=== PATIENT | male | born 1950 | race Caucasian/White ===

== ENCOUNTER 2019-07-28 13:25 | Emergency (ER) | payer BC, SELFPAY ==
[2019-07-28 13:50] VITALS: BP 146/80; PULSE 60; RESP 20; TEMP 36.4; O2SAT 94
--- NOTE | 2019-07-28 14:01 | ED.URI ---
HPI - URI/Sore Throat General Chief Complaint: Upper Respiratory Infection Stated Complaint: Sore throat Time Seen by Provider: 07/28/19 13:50 Source: patient Mode of arrival: ambulatory Limitations: no limitations History of Present Illness HPI Narrative: Gustavo Hebert is a 68 yo male with HTN, high cholesterol, hypothyroid, seizure disorder, who comes to express care for worsening sore throat and hoarseness over the last 5 days. Has used Mucinex with no result Related Data Home Medications Medication Instructions Recorded Confirmed carbamazepine 400 mg PO BID 07/28/19 07/28/19 levothyroxine 200 mcg PO DAILY 07/28/19 07/28/19 nebivolol [Bystolic] 10 mg PO DAILY 07/28/19 07/28/19 simvastatin 40 mg PO HS 07/28/19 07/28/19 Allergies Allergy/AdvReac Type Severity Reaction Status Date / Time No Known Allergies Allergy Unverified 08/14/14 13:38 Review of Systems Review of Systems: Narrative: CONSTITUTIONAL: Denies fever, chills, sweats. EYES: Denies visual changes, redness, discharge. ENT: Denies rhinorrhea, has congestion, has sore throat, no otalgia. CARDIOVASCULAR: Denies chest pain, palpitations, edema. RESPIRATORY: Denies dyspnea, wheezing, mild cough GASTROINTESTINAL: Denies abdominal pain, nausea, vomiting, diarrhea. GENITOURINARY: Denies dysuria, hematuria, abnormal discharge SKIN: Denies rash or itching. NEUROLOGIC: Denies numbness, or focal weakness. PSYCHIATRIC: Denies anxiety or depression. [facility] Family History Family History (Updated 07/28/19 @ 14:04 by Yajaira Lauern CNP) Other No active medical problems Social History Social History Smoking status: Current some day smoker Alcohol intake: current Comments At time of signature, I agree with nursing past medical, surgical, social and family history. There is no relevant family history pertinent to the presenting complaint. Exam Narrative: Exam Narrative: GENERAL: This is a well-nourished, well-developed patient, in mild distress. HEAD: normocephalic, atraumatic. EYES: Sclera clear/white. Vision is grossly intact. EARS: External ears normal, auditory canals clear and without drainage, TMs normal without perforation. Hearing grossly intact. NOSE: External nose normal with no obvious nasal discharge, nares without redness, no rhinorrhea. THROAT: Mucous membranes moist, posterior pharynx erythema with deepening of voice and some laryngitis NECK: Neck supple, non-tender CARDIOVASCULAR: Regular rate and rhythm without murmurs, gallops, or rubs. RESPIRATORY: Diminished to auscultation. Breath sounds equal bilaterally. No wheezes, rales, or rhonchi. GASTROINTESTINAL: Abdomen soft, non-tender, SKIN: warm, intact with no suspicious lesions or rash, good texture and turgor. NEURO: awake, alert, and oriented to person, place and time. There were no obvious focal neurologic abnormalities. Steady gait EXTREMITIES: Normal range of motion. No edema. BACK: Nontender without deformity or crepitance. Course Course Emergency Course: Strep swab Started on prednisone, zithromax, codeine cough syrup Vital Signs Vital signs: Vital Signs Temperature 97.5 F L 07/28/19 13:50 Pulse Rate 60 07/28/19 13:50 Respiratory Rate 20 07/28/19 13:50 Blood Pressure 146/80 H 07/28/19 13:50 Pulse Oximetry 94 07/28/19 13:50 Temperature 97.5 F L 07/28/19 13:50 Pulse Rate 60 07/28/19 13:50 Respiratory Rate 20 07/28/19 13:50 Blood Pressure 146/80 H 07/28/19 13:50 Pulse Oximetry 94 07/28/19 13:50 MDM - URI/Sore Throat Differential Diagnosis Differential diagnosis: Likely upper respiratory infection, sinusitis, viral infection, pharyngitis and other Lab Data Labs: Strep Screen Presumptive Negative *(Reference Range: Negative)* Discharge Plan Discharge Clinical Impression: Pharyngitis Qualifiers: Pharyngitis/tonsillitis etiology: unspe
== END 2019-07-28 14:28 | disposition home or self-care (01) ==
PROVIDERS: Emergency Provider Nurse Practitioner; PCP Internal Medicine
DX: J02.9 Acute pharyngitis, unspecified (principal); F17.200 Nicotine dependence, unspecified, uncomplicated; I10 Essential (primary) hypertension; E78.00 Pure hypercholesterolemia, unspecified
CPT/HCPCS: 87081; 87880; 99203; G0463

== ENCOUNTER 2019-12-21 14:25 | Outpatient (CLI) | payer BC, SELFPAY ==
--- NOTE | ~2019-12-21 | XR_ITS ---
EXAMINATION: XR knee LT 3V DATE: 12/21/2019 14:46 INDICATION: Left knee pain. TECHNIQUE: 3 views of left knee were obtained. COMPARISON: None. FINDINGS: There is varus angulation at the knee. No fracture. There is severe osteoarthritis of media l compartment, moderate osteoarthritis of patellofemoral compartment, and mild osteoarthritis of late ral compartment. No knee joint effusion. IMPRESSION: 1. Severe left knee osteoarthritis. Reviewed, dictated and finalized at location A.
== END 2019-12-21 14:26 | disposition home or self-care (01) ==
LOC: ANHIMG 14:30
PROVIDERS: PCP Internal Medicine; Visit Provider Internal Medicine
DX: M17.12 Unilateral primary osteoarthritis, left knee (principal)
CPT/HCPCS: 73562

== ENCOUNTER 2020-01-03 08:26 | Outpatient (CLI) | payer BC, SELFPAY ==
[2020-01-03 09:04] LABS: Basophils Percent Auto 0.4 % (0.2-1.2); Eosinophils Absolute Auto 0.2 K/mm3 (0-0.3); Eosinophils Percent Auto 4.4 % (0-4.4); Hematocrit 43.6 % (42.0-52.0); Hemoglobin 15.1 g/dL (14.0-18.0); Immature Granulocyte Absolute 0.01 K/mm3 (0.00-0.031); Immature Granulocyte Percent A 0.2 % (0-0.5); Lymphocytes Absolute Auto 1.27 K/mm3 (0.9-3.2); Lymphocytes Percent Auto 25.6 % (18.3-44.2); Mean Corpuscular HGB Conc 34.6 g/dl (32-36); Mean Corpuscular Hemoglobin 33.1 pg (26-34); Mean Corpuscular Volume 95.6 fl (80-100); Mean Platelet Volume 8.8 fl (7.4-10.4); Monocytes Absolute Auto 0.6 K/mm3 (0.1-0.6); Monocytes Percent Auto 11.3 % (2.6-8.5); Neutrophils Absolute Auto 2.9 K/mm3 (1.3-6.7); Neutrophils Percent Auto 58.1 % (45.5-73.1); Platelet Count Result 161 k/mm3 (150-375); Red Blood Count 4.56 M/mm3 (4.6-6.20); Red Cell Distribution Width 12.4 % (11.5-14.5)
[2020-01-03 09:06] LABS: Add Urine Microscopic? NO; Appearance Urine Clear (Clear); Bilirubin Urine Negative (Negative); Blood Urine Negative (Negative); Color Urine Yellow (Yellow); Glucose Urine UA Negative (Negative); Ketones Urine Negative (Negative); Leukocyte Esterase Ur Negative LEU/UL (NEGATIVE); Nitrate Urine Negative (Negative); Protein Urine Negative (Negative); Specific Grav Ur 1.023 (1.001-1.035); Urobilinogen Urine Negative mg/dL (<2.0)
[2020-01-03 09:15] LABS: Hemoglobin A1C 5.6 % (<5.7)
[2020-01-03 09:20] LABS: Alanine Aminotransferase 35 U/L (4-50); Albumin Level 4.3 g/dL (3.5-5.1); Alkaline Phosphatase 74 U/L (38-126); Anion Gap 9 mmol/L (8-16); Aspartate Amino Transferase 35 U/L (17-59); Bilirubin,Total 0.5 mg/dL (0.2-1.3); Blood Urea Nitrogen 17 mg/dL (9-20); Carbon Dioxide 21 mmol/L (22-30); Chloride 106 mmol/L (98-107); Cholesterol 213 mg/dL (0-200); Estimated Glomerular Filt Rate > 60; Glucose 128 mg/dL (75-110); HDL Direct 48 mg/dL; Potassium 4.1 mmol/L (3.4-5.0); Sodium 136 mmol/L (137-145); Triglycerides 276 mg/dL (<150)
[2020-01-03 09:30] LABS: LDL Cholesterol Direct 94 mg/dL
[2020-01-03 09:48] LABS: Free T4 Free Thyroxine 0.76 ng/mL (0.78-2.19)
[2020-01-03 09:49] LABS: Thyroid Stimulating Hormone 0.281 uIU/mL (0.465-4.680)
[2020-01-06 04:55] LABS: Insulin Level Total 44.6 uIU/mL (<=19.6)
[2020-01-06 17:25] LABS: Vitamin D 1,25 (OH)2 Total 29 pg/mL (18-72); Vitamin D2 1,25 (OH)2 <8 pg/mL; Vitamin D3 1,25 (OH)2 29 pg/mL
[2020-01-07 06:30] LABS: C-Peptide 3.83 ng/mL (0.80-3.85)
[2020-01-11 07:00] LABS: Carbamazepine Tegretol 4.6 mcg/mL (4.0-12.0)
== END 2020-01-03 08:27 | disposition home or self-care (01) ==
PROVIDERS: PCP Internal Medicine; Visit Provider Internal Medicine
DX: E55.9 Vitamin D deficiency, unspecified (principal); E16.1 Other hypoglycemia; G40.909 Epilepsy, unspecified, not intractable, without status epilepticus; I10 Essential (primary) hypertension; E03.9 Hypothyroidism, unspecified; R79.9 Abnormal finding of blood chemistry, unspecified; Z79.899 Other long term (current) drug therapy; E78.00 Pure hypercholesterolemia, unspecified
CPT/HCPCS: 36415; 80053; 80061; 80156; 81003; 82652; 83036; 83090; 83525; 84439; 84443; 84681; 85025

== ENCOUNTER 2020-02-16 10:27 | Outpatient (CLI) | payer BC, SELFPAY ==
--- NOTE | 2020-02-16 | ECG_ITS ---
Measurements Intervals [place] Rate: 55 P: 21 NH: 209 QRS: -43 QRSD: 122 T: 43 QT: 428 QTc: 412 Interpretive Statements SINUS BRADYCARDIA WITH FIRST DEGREE AV BLOCK LEFT AXIS DEVIATION RSR' IN V1 OR V2, CONSIDER RIGHT VENTRICULAR HYPERTROPHY OR RIGHT VCD ABNORMAL ECG Electronically Signed On 02-16-2020 20:07:40 CDT by Karan Lyons D.O.
[2020-02-16 11:57] LABS: Hematocrit 45.6 % (42.0-52.0); Hemoglobin 15.7 g/dL (14.0-18.0)
[2020-02-16 12:06] LABS: Hemoglobin A1C 5.6 % (<5.7)
[2020-02-16 12:07] LABS: Albumin Level 4.7 g/dL (3.5-5.1); Estimated Glomerular Filt Rate > 60; Glucose 102 mg/dL (75-110)
[2020-02-16 12:17] LABS: Urine Cotinine NEGATIVE
== END 2020-02-16 10:28 | disposition home or self-care (01) ==
PROVIDERS: PCP Internal Medicine; Visit Provider Orthopaedic Surgery
DX: Z01.818 Encounter for other preprocedural examination (principal); M17.12 Unilateral primary osteoarthritis, left knee; R94.31 Abnormal electrocardiogram [ECG] [EKG]
CPT/HCPCS: 80307; 82040; 82565; 82947; 83036; 85014; 85018; 93005

== ENCOUNTER 2020-03-01 13:47 | Outpatient (CLI) | payer BC, SELFPAY ==
[2020-03-01 15:25] LABS: Basophils Percent Auto 0.4 % (0.2-1.2); Eosinophils Absolute Auto 0.2 K/mm3 (0-0.3); Eosinophils Percent Auto 2.9 % (0-4.4); Hematocrit 45.1 % (42.0-52.0); Hemoglobin 15.2 g/dL (14.0-18.0); Immature Granulocyte Absolute 0.03 K/mm3 (0.00-0.031); Immature Granulocyte Percent A 0.4 % (0-0.5); Lymphocytes Absolute Auto 1.85 K/mm3 (0.9-3.2); Lymphocytes Percent Auto 25.7 % (18.3-44.2); Mean Corpuscular HGB Conc 33.7 g/dl (32-36); Mean Corpuscular Hemoglobin 32.8 pg (26-34); Mean Corpuscular Volume 97.4 fl (80-100); Mean Platelet Volume 8.8 fl (7.4-10.4); Monocytes Absolute Auto 0.6 K/mm3 (0.1-0.6); Monocytes Percent Auto 8.3 % (2.6-8.5); Neutrophils Absolute Auto 4.5 K/mm3 (1.3-6.7); Neutrophils Percent Auto 62.3 % (45.5-73.1); Platelet Count Result 167 k/mm3 (150-375); Red Blood Count 4.63 M/mm3 (4.6-6.20); Red Cell Distribution Width 12.5 % (11.5-14.5); White Blood Count 7.2 K/mm3 (4.5-10.0)
[2020-03-01 15:36] LABS: Anion Gap 11 mmol/L (8-16); Blood Urea Nitrogen 22 mg/dL (9-20); Calcium 9.8 mg/dL (8.4-10.2); Carbon Dioxide 26 mmol/L (22-30); Chloride 105 mmol/L (98-107); Estimated Glomerular Filt Rate > 60; Glucose 96 mg/dL (75-110); Potassium 4.1 mmol/L (3.4-5.0); Sodium 142 mmol/L (137-145)
[2020-03-06 09:49] LABS: Carbamazepine Tegretol 6.1 mcg/mL (4.0-12.0)
== END 2020-03-01 13:48 | disposition home or self-care (01) ==
PROVIDERS: Anesthesiology; PCP Internal Medicine; Visit Provider Orthopaedic Surgery
DX: M17.12 Unilateral primary osteoarthritis, left knee (principal); E11.9 Type 2 diabetes mellitus without complications; G43.909 Migraine, unspecified, not intractable, without status migrainosus
CPT/HCPCS: 36415; 80048; 80156; 85025; 86850; 86900; 86901; 87081

== ENCOUNTER 2020-03-11 00:55 | Outpatient (CLI) | payer BC, SELFPAY ==
[2020-03-11 17:41] LABS: SARS-CoV-2 RNA PCR Negative
== END 2020-03-11 00:56 | disposition home or self-care (01) ==
LOC: ANHCOVIDDT 00:55
PROVIDERS: PCP Internal Medicine; Visit Provider Orthopaedic Surgery
DX: Z01.812 Encounter for preprocedural laboratory examination (principal); Z20.828 Contact with and (suspected) exposure to other viral communicable diseases
CPT/HCPCS: 87635; C9803; U0003

== ENCOUNTER 2020-03-12 19:28 | Inpatient (IN) | payer BC, MEDICARE, SELFPAY ==
[2020-03-01 14:10] VITALS: BP 155/88; PULSE 60; RESP 16; TEMP 36.6; O2SAT 95; BMI 34.7
[2020-03-12] VITALS (12 sets, daily range): BP systolic 118–175; BP diastolic 65–92; PULSE 58–68; RESP 10–17; TEMP 36.5–36.8; O2SAT 94–100
--- NOTE | ~2020-03-12 | XR_ITS ---
EXAMINATION: XR knee LT 2V EXAM DATE: 03/12/2020 15:51 INDICATION: Postoperative left knee replacement. TECHNIQUE: Frontal and lateral projections of the left knee. Comparison is made to prior examination from 12/21/2019. FINDINGS: There is total left knee arthroplasty hardware in expected position. There is gas in the k nee joint, some subcutaneous gas. No unintended foreign bodies. IMPRESSION: Status post total left knee arthroplasty. Reviewed, dictated and finalized at location A.
--- NOTE | 2020-03-12 07:16 | WPDHPUPDATE1 ---
History and Physical Update Update Date/Time: 03/12/20 07:16 History and Physical has been reviewed, including an updated exam of the patient. There are NO changes in the patient's condition. Risks, benefits, and alternatives have been discussed and questions answered. Patient agrees to proceed with procedure.
--- NOTE | 2020-03-12 10:07 | WPDANESEPPF ---
Anes - Initial Pre Proc Eval Procedure: Operation Date: 03/12/20 13:30 Proposed Procedures p Left Total Knee Arthroplasty - Reji Nowak MD Date/Time: 03/12/20 10:07 Surgeon: Reji Nowak MD Pre Op Diagnosis: Degerative Joint Disease Left Knee Patient Data Age: 69 Gender: M Height: 1.75 m Weight: 106.6 kg Last Vital Signs Temp 36.6 C 03/01/20 14:10 Pulse 60 03/01/20 14:10 Resp 16 03/01/20 14:10 BP 155/88 H 03/01/20 14:10 Pulse Ox 95 03/01/20 14:10 Allergies Allergy/AdvReac Type Severity Reaction Status Date / Time No Known Allergies Allergy Verified 03/06/20 08:33 Home Medications Medication Instructions Recorded Confirmed Type carbamazepine 400 mg PO QAM 07/28/19 03/12/20 History levothyroxine 200 mcg PO HS 07/28/19 03/12/20 History qfoeelok-hca-ishqa acid 300 1 tablet PO DAILY 12/21/19 03/12/20 History mcg-lycopene 600 mcg-lutein 300 mcg tablet omeprazole 40 mg capsule,delayed 40 mg PO QAM 12/21/19 03/12/20 History release omega-3 fatty acids 1,000 mg 2,000 mg PO BID cap 01/04/20 03/12/20 History capsule metformin 500 mg tablet 500 mg PO BID #180 tablet 01/11/20 03/12/20 Rx vitamin B complex 3 tablet PO BID 02/06/20 03/12/20 History acetaminophen [Tylenol Arthritis 1,300 mg PO Q8H PRN 03/01/20 03/12/20 History Pain] aspirin 325 mg PO DAILY 03/01/20 03/12/20 History nebivolol 5 mg PO QAM 03/01/20 03/12/20 History olmesartan 40 mg PO QAM 03/01/20 03/12/20 History rosuvastatin [Crestor] 20 mg PO HS 03/01/20 03/12/20 History ECG: Date of Service: 02/16/20 Procedure(s): CA 12 lead EKG Accession Number(s): [id number] cc: ~ Measurements Intervals [place] Rate: 55 P: 21 [place]: 209 QRS: -43 QRSD: 122 T: 43 QT: 428 QTc: 412 Interpretive Statements SINUS BRADYCARDIA WITH FIRST DEGREE AV BLOCK LEFT AXIS DEVIATION RSR' IN V1 OR V2, CONSIDER RIGHT VENTRICULAR HYPERTROPHY OR RIGHT VCD ABNORMAL ECG Electronically Signed On 02-16-2020 20:07:40 CDT by Karan Lyons D.O. 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 LAST ONE 02/27/20 Alcohol intake: current Drinks per week: 7 Alcohol use details: WINE Substance use: never Living arrangements: alone Spiritual care concerns: No Anes - Eval Final PreProcedure D
[2020-03-12] MEDS: ACETAMINOPHEN 500 MG TABLET 1000 MG PO (12:08)
[2020-03-12 12:10] LABS: Glucose Point of Care 99 (65-105)
[2020-03-12] MEDS: TRANEXAMIC ACID 1,000MG/ISO100 1,000 MG/100 ML BAG 200 MG IVPB (12:14)
--- NOTE | 2020-03-12 12:30 | WPDANESPNB ---
Anes - Peripheral Nerve Block Date/Time: 03/12/20 12:30 I have discussed with the patient/family/POA the placement of a peripheral nerve block for post-operative pain management, including associated risks, benefits, complications, and side effects. Alternative methods of post-operative analgesia were detailed. Questions were solicited and answers provided to the satisfaction of the patient/family/POA. Time-Out: A pre-procedural Time-Out was completed immediately before starting the procedure and confirmed: Patient Identification, Site, Procedure, Patient Position and the Availability of Requisite Equipment. Clinical Indications: Acute post-operative pain management requested by the operative surgeon. Nerve Block Insertion Note Anes-nerve block: adductor canal left Patient position: supine Skin prep: chlorhexidine Needle: 22 gauge, stimulating, insulated echogenic needle. Needle length: 80 mm Technique: ultrasound Technique comment: in plane Injectate: bupivacaine 0.5% with epi 5 mcg/ml (30cc) Observations: tolerated well Complications: none Procedure start time:: 1250 Procedure end time:: 1300
[2020-03-12] MEDS: LACTATED RINGERS 1,000 ML 30 ML IV CONT ×2 (12:35→15:36)
[2020-03-12] MEDS: KETOROLAC 15 MG/ML VIAL (*BKC) IV PUSH (12:40)
[2020-03-12] MEDS: ceFAZolin 2 GM/D5W 50 ML 2 GM/50 ML BAG IVPB (13:46)
[2020-03-12] MEDS: GENTAMICIN BONE CEMENT REFOBACIN 1 EACH TOPICAL (14:00)
--- NOTE | 2020-03-12 15:32 | PM.PROC ---
Procedure Note - Detailed Date of procedure: 03/12/20 Pre-op diagnosis: Degerative Joint Disease Left Knee Post-op diagnosis: same Procedure performed: Total knee arthroplasty, left Description of procedure: Routine bone resections. Excellent bone quality. Diffuse tricompartmental degenerative changes noted. PCL intact. Implants: [place] [employer] size 5 press-fit femur, size 5 cemented low-profile tibia, 9 mm CR polyethylene insert, 35 mm asymmetric metal backed patellar component. Anesthesia: GETA and regional (subsartorial nerve block) Surgeon: Reji Nowak MD Roll Over Press Operator: Kym Ortiz PA-C Estimated blood loss (mL): 200 Tourniquet time (min): 12 Drains: No Complications: None Condition: stable Disposition: PACU Findings: OPERATIVE DETAILS: The patient was given a nerve block preoperatively, and then brought to the operating room. A general anesthetic was administered. The leg was prepped and draped in the usual sterile fashion. The limb was elevated and the tourniquet inflated to 300 mmHg during initial exposure. A longitudinal incision was created along the medial border of the patella and patellar tendon, and a minimally invasive optimized mid-vastus approach to the knee was performed. A moderate medial release was taken. The knee was then flexed. The osteophytes were carefully removed. The intramedullary guide was placed in the femoral canal. The distal femoral resection was then taken with the oscillating saw. The collateral ligaments were carefully protected. The tibia was carefully exposed. The jig was applied, and the proximal tibia was resected according to preoperative plan. The knee was balanced in extension. Appropriate releases were taken where needed. The anterior cruciate ligament and meniscal remnants were removed. The posterior cruciate ligament was preserved. The patella was measured. Patellar resection was carried out with the oscillating saw. The lug holes drilled. The femur was sized and rotation assessed using a combination of gap balancing, posterior referencing, and the AP axis. The 4 in 1 cutting block was used to finish the femoral cuts after equal gaps were assured. The lug holes were drilled. The osteophytes were carefully removed from the back of the knee. The knee was copiously irrigated with antibiotic solution periodically throughout the procedure. The meniscal remnants were removed. The spacer block was used to confirm equal flexion and extension gaps. Further releases were performed as needed. The tibia was sized and broached. The bony surfaces were prepared for cementing with pulsatile lavage. The real tibial component was cemented into position followed by press fitting the femoral component. Excess cement was carefully removed. The patella component was press-fit. Patellar tracking was carefully assessed. No additional releases were required. The wound was closed with #1 Vycril suture, #2 Quill suture, 0-Quill suture, and 2-0 Quill suture followed by Steri-Strips. A sterile bulky dressing was applied. Meticulous hemostasis was maintained throughout the procedure. There were no complications. The patient was extubated and brought to the recovery room in stable condition after the application of sterile dressing with Darrick bandage.
[2020-03-12 15:51] LABS: Glucose Point of Care 90 (65-105)
[2020-03-12] MEDS: SODIUM CHLORIDE 0.9% IV 1,000 ML 125 ML IV CONT (17:32)
[2020-03-12] MEDS: metFORMIN HCL 500 MG TABLET PO (17:33)
[2020-03-12] MEDS: VITAMIN B COMPLEX CAPSULE 3 CAP PO (17:34)
[2020-03-12] MEDS: ASPIRIN 81 MG ENTERIC TABLET PO (17:35)
[2020-03-12] MEDS: DOCUSATE SODIUM 100 MG CAPSULE PO (17:35)
[2020-03-12] MEDS: MELOXICAM 7.5 MG TABLET PO (17:35)
--- NOTE | 2020-03-12 18:00 | WPDCN ---
Assessment and Plan Assessment and plan (1) Degenerative joint disease of left knee: Code(s): M17.12 - Unilateral primary osteoarthritis, left knee Status: Acute (2) Hypertension: Code(s): I10 - Essential (primary) hypertension Status: Inactive (3) Dyslipidemia: Code(s): E78.5 - Hyperlipidemia, unspecified Status: Acute (4) Insulin resistance: Code(s): E88.81 - Metabolic syndrome Status: Acute (5) Hypothyroidism: Code(s): E03.9 - Hypothyroidism, unspecified Status: Inactive (6) Seizure disorder: Code(s): G40.909 - Epilepsy, unspecified, not intractable, without status epilepticus Status: Acute (7) Obstructive sleep apnea: Code(s): G47.33 - Obstructive sleep apnea (adult) (pediatric) Status: Inactive (8) Gastroesophageal reflux disease: Code(s): K21.9 - Gastro-esophageal reflux disease without esophagitis Status: Inactive Additional Plan The hospitalist service has been consulted for management of the patient's medical condition postoperatively. Wound care, pain control, and DVT prophylaxis will be deferred to Dr. Nowak. Agree with early ambulation and physical therapy. Blood pressures have been running high postoperatively, likely due to missed doses this morning. Antihypertensives will be resumed and his blood pressures will be monitored closely. Check baseline labs in a.m. He is on metformin for insulin resistance the and it is noted that his most recent hemoglobin A1c was 5.6%. No need for sliding-scale insulin. A CPAP will be provided for the patient while hospitalized. Thank you for allowing us to participate in this patient's care. Please do not hesitate to contact us with any questions. We will follow with you. Supervising physician for this medical consultation is Dr. Ricky Pineda. HPI Data of Consult Date/Time: 03/12/20 18:00 Requesting Physician: Reji Nowak MD Primary Care Provider: Wayne Tellez MD Consult Narrative Narrative: Gustavo Hebert is a 69-year-old male whom the hospitalist service has been consulted for management of his medical conditions status post left total knee arthroplasty. His medical history is significant for degenerative joint disease of the left knee, obstructive sleep apnea, hypertension, dyslipidemia, insulin resistance, hypothyroidism, GERD, and remote seizures. He has had pain in his left knee for approximately 1 year and unfortunately conservative outpatient therapy has not provided him with longstanding relief. It is now to the point where he has constant pain and even nighttime pain, and thus elected for replacement. His surgery was performed under general anesthesia with regional block. No immediate complications were documented an estimated blood loss was 200 mL. At the time my evaluation he is sitting in a chair at the side of the bed and has minimal aching discomfort in the knee. He denies paresthesias, skin color, and temperature changes distal to the surgical site. He has not had postoperative fever, chills, chest pain, shortness of breath, nausea, or vomiting. No personal history of venous thromboembolism. Review of Systems Review of Systems: Narrative: Twelve systems were reviewed with pertinent positives and negatives as per HPI. No fever, chills, or sweats. No recent cold or flu symptoms. He denies sick contacts. No known exposure to those positive for COVID-19. He has no personal history of venous thromboembolism. No known history of coronary pulmonary disease. He had a negative stress test a couple of years ago. No exertional chest pain or shortness of breath. He does not check his glucose at home. He is compliant with his CPAP. Except as documented, all other systems were reviewed and are negative. [facility] Past Medical History Medical History (Updated 03/12/20 @ 18:20 by Andrew Razo
[2020-03-12] MEDS: ROSUVASTATIN 10 MG TABLET 20 MG PO (20:53)
[2020-03-12] MEDS: SENNOSIDES 8.6 MG TABLET 17.2 MG PO (20:53)
[2020-03-13 02:00] VITALS: BP 147/75; PULSE 62; RESP 16; TEMP 36.1; O2SAT 98
[2020-03-13] MEDS: oxyCODONE HCL (*CRX) 5 MG TAB IR PO (02:07)
[2020-03-13 05:32] VITALS: BP 146/72; PULSE 63; RESP 16; TEMP 36.7; O2SAT 99
[2020-03-13] MEDS: LEVOTHYROXINE SODIUM 100 MCG TABLET 200 MCG PO (05:59)
[2020-03-13 06:16] LABS: Basophils Percent Auto 0.2 % (0.2-1.2); Eosinophils Absolute Auto 0.2 K/mm3 (0-0.3); Eosinophils Percent Auto 1.6 % (0-4.4); Hematocrit 37.4 % (42.0-52.0); Hemoglobin 12.8 g/dL (14.0-18.0); Immature Granulocyte Absolute 0.03 K/mm3 (0.00-0.031); Immature Granulocyte Percent A 0.3 % (0-0.5); Lymphocytes Absolute Auto 1.35 K/mm3 (0.9-3.2); Lymphocytes Percent Auto 13.8 % (18.3-44.2); Mean Corpuscular HGB Conc 34.2 g/dl (32-36); Mean Corpuscular Hemoglobin 33.1 pg (26-34); Mean Corpuscular Volume 96.6 fl (80-100); Monocytes Absolute Auto 1.1 K/mm3 (0.1-0.6); Monocytes Percent Auto 10.8 % (2.6-8.5); Neutrophils Absolute Auto 7.2 K/mm3 (1.3-6.7); Neutrophils Percent Auto 73.3 % (45.5-73.1); Platelet Count Result 143 k/mm3 (150-375); Red Blood Count 3.87 M/mm3 (4.6-6.20); Red Cell Distribution Width 12.9 % (11.5-14.5); White Blood Count 9.8 K/mm3 (4.5-10.0)
[2020-03-13 06:21] LABS: Alanine Aminotransferase 31 U/L (4-50); Albumin Level 3.8 g/dL (3.5-5.1); Alkaline Phosphatase 56 U/L (38-126); Anion Gap 6 mmol/L (8-16); Aspartate Amino Transferase 35 U/L (17-59); Bilirubin,Total 0.5 mg/dL (0.2-1.3); Blood Urea Nitrogen 16 mg/dL (9-20); Calcium 8.5 mg/dL (8.4-10.2); Carbon Dioxide 29 mmol/L (22-30); Chloride 103 mmol/L (98-107); Estimated CRCL calculation 73 ml/min; Estimated Glomerular Filt Rate > 60; Glucose 112 mg/dL (75-110); Sodium 138 mmol/L (137-145)
[2020-03-13] MEDS: oxyCODONE HCL (*CRX) 5 MG TAB IR 10 MG PO ×2 (07:45→13:54)
--- NOTE | 2020-03-13 08:14 | PM.IMPN ---
Progress Note: A&P Assessment and Plan (1) Degenerative joint disease of left knee: Code(s): M17.12 - Unilateral primary osteoarthritis, left knee Status: Acute Assessment and Plan: He is s/p left total knee arthroplasty 03/12/[address] Nowak due to degenerative joint disease with lifestyle-limiting pain. There were no immediate complications documented. He is recovering well post-op. He has not ambulated yet with therapy. Wound care, pain control, and DVT prophylaxis will be deferred to Dr. Nowak. Agree with early ambulation and physical therapy. (2) Hypertension: Code(s): I10 - Essential (primary) hypertension Status: Chronic Assessment and Plan: Blood pressures were elevated yesterday, likely multifactorial due to pain and home antihypertensives on hold. Nebivolol and olmesartan were resumed. BP control has improved. Continue to monitor closely. (3) Dyslipidemia: Code(s): E78.5 - Hyperlipidemia, unspecified Status: Chronic Assessment and Plan: LFTs were reviewed and are normal. Continue rosuvastatin. (4) Insulin resistance: Code(s): E88.81 - Metabolic syndrome Status: Acute Assessment and Plan: Hemoglobin A1c was 5.6%. Continue metformin. (5) Hypothyroidism: Code(s): E03.9 - Hypothyroidism, unspecified Status: Chronic Assessment and Plan: Continue levothyroxine. Continue outpatient follow-up. (6) Seizure disorder: Code(s): G40.909 - Epilepsy, unspecified, not intractable, without status epilepticus Status: Chronic Assessment and Plan: Continue carbamazepine. (7) Obstructive sleep apnea: Code(s): G47.33 - Obstructive sleep apnea (adult) (pediatric) Status: Chronic Assessment and Plan: Continue CPAP titrated to home settings. (8) Gastroesophageal reflux disease: Code(s): K21.9 - Gastro-esophageal reflux disease without esophagitis Status: Chronic Assessment and Plan: Chronic with no acute issues. Continue pantoprazole in place of omeprazole while inpatient. (9) Postoperative anemia due to acute blood loss: Code(s): D62 - Acute posthemorrhagic anemia Status: Acute Assessment and Plan: Hb 12.8 and Hct 37.4, likely due to post-op blood loss as Hb and Hct were normal on pre-op labs 03/01/20. Continue to monitor and transfuse as needed to maintain Hb >7. Recommend outpatient follow-up to ensure resolution after the post-op period. Subjective Date/time seen: 03/13/20 08:14 Mr. Hebert is a 69 y.o. male with PMH significant for HTN, seizure disorder, insulin resistance, HTN, GERD, HLD, neuropathy, FELIX, and hypothyroidism who is seen in follow-up for medical management s/p left total knee arthroplasty by Dr. Nowak 03/12/20. He is doing well. He reports sharp, shooting pains intermittently in the left knee which he rates at 5-6/10. He just took a dose of oxycodone today. He transferred to the chair today but has not ambulated yet. He is voiding without difficulty. He is passing flatus but no bowel movement yet. He is tolerating his diet without nausea or vomiting. He denies abdominal pain. He reports a mild frontal headache which he believes is due to not having caffeine for 2 days. He denies chest pain, dyspnea, and palpitations. He has no other complaints. Review of Systems Review of Systems: All systems reviewed & are unremarkable except as noted in HPI and below Exam Narrative: Exam Narrative: General: Very pleasant, well-developed, obese 69 y.o. male who is sitting in the chair at the bedside in no acute distress. Ice therapy is present. HEENT: Normocephalic and atraumatic. EOMI. Oral mucosa moist. Neck: Supple without lymphadenopathy or masses. Cardiac: Regular rate and rhythm. S1 and S2 normal. Lungs: Lungs are clear to auscultation bilaterally. Abdomen: Bowel sounds are normoact
[2020-03-13] MEDS: VITAMIN B COMPLEX CAPSULE 3 CAP PO (09:07)
[2020-03-13 09:08] VITALS: PULSE 86
[2020-03-13] MEDS: DOCUSATE SODIUM 100 MG CAPSULE PO (09:08)
[2020-03-13] MEDS: ASPIRIN 81 MG ENTERIC TABLET PO (09:08)
[2020-03-13] MEDS: OPTI-GEN TAB 1 TABLET PO (09:08)
[2020-03-13] MEDS: CARBAMAZEPINE XR 200 MG TAB.ER.12H 400 MG PO (09:08)
[2020-03-13] MEDS: OLMESARTAN MEDOXOMIL 20 MG TABLET 40 MG PO (09:08)
[2020-03-13] MEDS: NEBIVOLOL HCL 5 MG TABLET PO (09:08)
[2020-03-13] MEDS: PANTOPRAZOLE 40 MG TABLET PO (09:08)
[2020-03-13] MEDS: MELOXICAM 7.5 MG TABLET PO (09:08)
[2020-03-13] MEDS: metFORMIN HCL 500 MG TABLET PO (09:09)
[2020-03-13] MEDS: polyethylene glycoL 3350 17 GM POWD.PACK PO (09:09)
[2020-03-13 09:50] VITALS: O2SAT 97
[2020-03-13 10:00] VITALS: BP 111/67; PULSE 78; RESP 16; TEMP 36.7; O2SAT 99
--- NOTE | 2020-03-13 13:02 | P.PNAN_ITS ---
Anes - Prog Note Post-Op Date/Time: 03/13/20 13:02 Cardiovascular status: normal Respiratory status: normal Airway patency: baseline Mental status: baseline Post-Op hydration status: normal Vital Signs: Last Vital Signs Temp 98.0 F 03/13/20 10:00 Pulse 78 03/13/20 10:00 Resp 16 03/13/20 10:00 BP 111/67 03/13/20 10:00 Pulse Ox 99 03/13/20 10:00 Pain Score (VAS): 0/10 I/O: Intake & Output 03/12/20 03/13/20 03/13/20 23:59 07:59 15:59 Intake Total 1450 550 400 Output Total 250 500 Balance 1200 50 400 Laboratory Tests 03/13/20 05:33 03/13/20 05:33 03/12/20 03/13/20 03/13/20 15:41 05:33 05:33 WBC 9.8 RBC 3.87 L Hgb 12.8 L Hct 37.4 L MCV 96.6 MCH 33.1 MCHC 34.2 RDW 12.9 Plt Count 143 L MPV 9.0 Immature Gran % (Auto) 0.3 Neut % (Auto) 73.3 H Lymph % (Auto) 13.8 L Mcdonald % (Auto) 10.8 H Eos % (Auto) 1.6 Baso % (Auto) 0.2 Lymph # (Auto) 1.35 Mcdonald # (Auto) 1.1 H Eos # (Auto) 0.2 Baso # (Auto) 0.0 Abs Immat Gran (auto) 0.03 Absolute Neuts (auto) 7.2 H Absolute Nucleated RBC 0.0 Nucleated RBC % 0.0 Sodium 138 Potassium 4.0 Chloride 103 Carbon Dioxide 29 Anion Gap 6 L BUN 16 Creatinine 1.00 Estim Creat Clear Calc 73 Estimated GFR > 60 Glucose 112 H POC Capillary Glucose 90 Calcium 8.5 Total Bilirubin 0.5 Direct Bilirubin 0.0 AST 35 ALT 31 Alkaline Phosphatase 56 Total Protein 6.0 L Albumin 3.8 Post-procedural complaints: none Patient Feedback: Patient satisfied with anesthetic care.
--- NOTE | 2020-03-13 14:31 | PM.DS ---
DS: Admitting Diagnosis Admitting Diagnosis Admitting Diagnosis: Degerative Joint Disease Left Knee DS: Discharge Diagnosis Discharge Diagnosis (1) History of arthroplasty of left knee: Onset Date: ~03/12/20 Code(s): Z96.652 - Presence of left artificial knee joint Status: Inactive DS: Summary Hospital Course Reason for hospitalization: Total knee arthroplasty. Hospital Course: Tolerated surgery well. Progressed appropriately with therapy. Status at Discharge Functional status at discharge: uses cane/walker Overall status at discharge: patient is progressing back to baseline Time Spent with Patient Time attestation: Total time spent providing and/or coordinating discharge services: Exam Const: General: no acute distress Resp: Effort & Inspection: normal respiratory effort Skin: Other: Wound healing well. Mepilex dressing intact. No hematoma or drainage. Neuro: Motor exam (neuro): 5/5 motor strength present throughout Sensory Exam: normal sensation Psych: Mental Status: mental status grossly normal Speech and movement: Normal speech and movement present Discharge Plan Discharge Attending physician on discharge: Reji Nowak Consulting providers: Naz Ambrosio ; Ricky Pineda ; Yamilet Montenegro ; Sherwin Bennett Discharging Clinician: Reji Nowak Patient Disposition: Home, Self-Care Activity: may shower Diet: as tolerated Wound Care Instructions: follow printed instructions Discharge Instructions: See instruction sheet. Patient Instructions: How to Stop Smoking (DC), Pain Management (DC), Precautions after Total Joint Replacement Surgery (DC), Joint Replacement Surgery (DC), Knee Replacement (DC) Follow-up/Referrals: Reji Nowak MD [Physician] - Discharge Medications: New aspirin 81 mg Tablet,Delayed Release (Dr/Ec) 81 mg PO BID Qty: 28 RF: 0 meloxicam [Mobic] 7.5 mg Tablet 7.5 mg PO BIDWM 28 Days Qty: 56 RF: 0 Continued vitamin B complex Tablet 3 tablet PO BID RF: 0 omeprazole 40 mg capsule,delayed release(DR/EC) 40 mg PO QAM RF: 0 Centrum Silver Men 300-600-300 mcg tablet 1 tablet PO DAILY RF: 0 metformin 500 mg tablet 500 mg PO BID Qty: 180 RF: 1 olmesartan 40 mg tablet 40 mg PO QAM RF: 0 rosuvastatin [Crestor] 20 mg tablet 20 mg PO HS RF: 0 nebivolol 5 mg tablet 5 mg PO QAM RF: 0 omega-3 fatty acids [Fish Oil Concentrate] 1,000 mg capsule 2,000 mg PO BID RF: 0 Held aspirin 325 mg Tablet 325 mg PO DAILY RF: 0 Hold Instructions: Resume on 03/26/20. Discontinued acetaminophen [Tylenol Arthritis Pain] 650 mg Tablet Extended Release 1,300 mg PO Q8H PRN (Reason: Pain) RF: 0 No Action oxycodone-acetaminophen 5-325 mg tablet 1 - 2 tablet PO Q4-6H MDD 8 tablets PRN (Reason: pain) Qty: 40 RF: 0 carbamazepine 400 mg tablet extended release 12 hr 400 mg PO QAM Qty: 90 RF: 0 levothyroxine 200 mcg tablet 200 mcg PO DAILY Qty: 90 RF: 0 Date of admission: 03/12/20 19:28 Primary Care Provider: Wayne Tellez Admitting Provider: Reji Nowak Attending physician on admission: Reji Nowak Quality VTE Prophylaxis VTE prophylaxis: mechanical ordered
== END 2020-03-13 14:42 | disposition home or self-care (01) | DRG 470 ==
LOC: ANHSURGERY 19:33 → ANH2MED 19:34
PROVIDERS: Physician Assistant; Admitting Provider Orthopaedic Surgery; PCP Internal Medicine; Visit Provider Orthopaedic Surgery
PROC: 0SRD0J9 Replacement of Left Knee Joint with Synthetic Substitute, Cemented, Open Approach (ICD-10-PCS; CPT 27447; principal; 2020-03-12 13:30)
DX: M17.12 Unilateral primary osteoarthritis, left knee (principal); D62 Acute posthemorrhagic anemia; I10 Essential (primary) hypertension; E78.5 Hyperlipidemia, unspecified; E88.81 Metabolic syndrome and other insulin resistance; E03.9 Hypothyroidism, unspecified; G40.909 Epilepsy, unspecified, not intractable, without status epilepticus; G47.33 Obstructive sleep apnea (adult) (pediatric); K21.9 Gastro-esophageal reflux disease without esophagitis; F17.290 Nicotine dependence, other tobacco product, uncomplicated; E55.9 Vitamin D deficiency, unspecified; G62.9 Polyneuropathy, unspecified; Z79.82 Long term (current) use of aspirin; Z79.84 Long term (current) use of oral hypoglycemic drugs; Z79.899 Other long term (current) drug therapy
CPT/HCPCS: 36415; 73560; 80048; 80076; 85025; 96361; 96365; 97110; 97116; 97161; 97165; A9270; C1713; C1776; G0378; J0131; J0171; J0690; J1885; J2270; J2370; J2405; J2704; J2795; J3010; J7030; J7120

== ENCOUNTER 2020-04-29 15:18 | Outpatient (CLI) | payer BC, SELFPAY ==
[2020-04-29 16:04] LABS: Anion Gap 9 mmol/L (8-16); Blood Urea Nitrogen 21 mg/dL (9-20); Calcium 9.4 mg/dL (8.4-10.2); Carbon Dioxide 25 mmol/L (22-30); Chloride 105 mmol/L (98-107); Estimated Glomerular Filt Rate > 60; Glucose 104 mg/dL (75-110); Potassium 4.3 mmol/L (3.4-5.0); Sodium 139 mmol/L (137-145)
[2020-04-29 16:13] LABS: Hemoglobin A1C 5.2 % (<5.7)
[2020-04-29 16:35] LABS: Prostate Specific Antigen 1.1 ng/mL (< OR = 4.0)
[2020-04-29 17:32] LABS: Free T4 Free Thyroxine 0.95 ng/mL (0.78-2.19)
[2020-05-02 14:33] LABS: Triiodothyronine T3 Free 2.9 pg/mL (2.3-4.2)
== END 2020-04-29 15:19 | disposition home or self-care (01) ==
LOC: ANHLAB 15:21
PROVIDERS: PCP Internal Medicine; Visit Provider Internal Medicine
DX: E88.81 Metabolic syndrome and other insulin resistance (principal); Z12.5 Encounter for screening for malignant neoplasm of prostate; R94.6 Abnormal results of thyroid function studies; I10 Essential (primary) hypertension; R73.03 Prediabetes; E78.00 Pure hypercholesterolemia, unspecified
CPT/HCPCS: 36415; 80048; 83036; 84153; 84439; 84443; 84481; G0103

== ENCOUNTER 2020-05-08 08:44 | Outpatient (CLI) | payer BC, SELFPAY ==
[2020-05-08 09:07] LABS: Cholesterol 158 mg/dL (0-200); HDL Direct 59 mg/dL; Triglycerides 140 mg/dL (<150)
[2020-05-08 09:18] LABS: LDL Cholesterol Direct 61 mg/dL
[2020-05-11 05:05] LABS: Insulin Level Total 21.6 uIU/mL (<=19.6)
== END 2020-05-08 08:45 | disposition home or self-care (01) ==
PROVIDERS: PCP Internal Medicine; Visit Provider Internal Medicine
DX: E88.81 Metabolic syndrome and other insulin resistance (principal); E78.5 Hyperlipidemia, unspecified
CPT/HCPCS: 36415; 80061; 83525

== ENCOUNTER 2020-09-03 11:45 | Outpatient (CLI) | payer BC, SELFPAY ==
[2020-09-03 12:45] LABS: Basophils Percent Auto 0.3 % (0.2-1.2); Eosinophils Absolute Auto 0.2 K/mm3 (0-0.3); Eosinophils Percent Auto 3.1 % (0-4.4); Hematocrit 41.7 % (42.0-52.0); Hemoglobin 14.3 g/dL (14.0-18.0); Immature Granulocyte Absolute 0.03 K/mm3 (0.00-0.031); Immature Granulocyte Percent A 0.4 % (0-0.5); Lymphocytes Absolute Auto 1.83 K/mm3 (0.9-3.2); Lymphocytes Percent Auto 25.4 % (18.3-44.2); Mean Corpuscular HGB Conc 34.3 g/dl (32-36); Mean Corpuscular Hemoglobin 33.1 pg (26-34); Mean Corpuscular Volume 96.5 fl (80-100); Mean Platelet Volume 9.2 fl (7.4-10.4); Monocytes Absolute Auto 0.8 K/mm3 (0.1-0.6); Monocytes Percent Auto 11.7 % (2.6-8.5); Neutrophils Absolute Auto 4.3 K/mm3 (1.3-6.7); Neutrophils Percent Auto 59.1 % (45.5-73.1); Platelet Count Result 158 k/mm3 (150-375); Red Blood Count 4.32 M/mm3 (4.6-6.20); Red Cell Distribution Width 12.7 % (11.5-14.5); White Blood Count 7.2 K/mm3 (4.5-10.0)
[2020-09-03 12:53] LABS: Hemoglobin A1C 5.5 % (<5.7)
[2020-09-03 12:58] LABS: Anion Gap 7 mmol/L (8-16); Blood Urea Nitrogen 19 mg/dL (9-20); Calcium 9.6 mg/dL (8.4-10.2); Carbon Dioxide 25 mmol/L (22-30); Chloride 105 mmol/L (98-107); Cholesterol 128 mg/dL (0-200); Estimated Glomerular Filt Rate > 60; Glucose 81 mg/dL (75-110); HDL Direct 50 mg/dL; Potassium 4.6 mmol/L (3.4-5.0); Sodium 137 mmol/L (137-145); Triglycerides 191 mg/dL (<150)
[2020-09-03 13:09] LABS: LDL Cholesterol Direct 46 mg/dL
== END 2020-09-03 11:46 | disposition home or self-care (01) ==
LOC: ANHLAB 11:47
PROVIDERS: PCP Internal Medicine; Visit Provider Internal Medicine
DX: E03.9 Hypothyroidism, unspecified (principal); E78.5 Hyperlipidemia, unspecified; R73.03 Prediabetes; Z51.81 Encounter for therapeutic drug level monitoring; Z79.899 Other long term (current) drug therapy; I10 Essential (primary) hypertension
CPT/HCPCS: 36415; 80048; 80061; 83036; 85025

== ENCOUNTER 2021-01-24 13:50 | Outpatient (CLI) | payer BC, SELFPAY ==
[2021-01-24 14:22] LABS: Hemoglobin A1C 5.8 % (<5.7)
[2021-01-24 14:23] LABS: Anion Gap 10 mmol/L (8-16); Blood Urea Nitrogen 27 mg/dL (9-20); Calcium 9.8 mg/dL (8.4-10.2); Carbon Dioxide 24 mmol/L (22-30); Chloride 106 mmol/L (98-107); Cholesterol 138 mg/dL (0-200); Estimated Glomerular Filt Rate 60; Glucose 91 mg/dL (65-110); HDL Direct 52 mg/dL; Potassium 4.5 mmol/L (3.4-5.0); Sodium 140 mmol/L (137-145); Triglycerides 220 mg/dL (<150)
[2021-01-24 14:34] LABS: LDL Cholesterol Direct 48 mg/dL
[2021-01-24 14:41] LABS: Free T4 Free Thyroxine 0.98 ng/mL (0.78-2.19)
[2021-01-24 14:53] LABS: Thyroid Stimulating Hormone 0.024 uIU/mL (0.465-4.680)
[2021-01-27 04:00] LABS: Insulin Level Total 27.4 uIU/mL (<=19.6)
== END 2021-01-24 13:51 | disposition home or self-care (01) ==
LOC: ANHLAB 13:53
PROVIDERS: PCP Internal Medicine; Visit Provider Internal Medicine
DX: I10 Essential (primary) hypertension (principal); R73.03 Prediabetes; E03.9 Hypothyroidism, unspecified; E88.81 Metabolic syndrome and other insulin resistance; E78.5 Hyperlipidemia, unspecified
CPT/HCPCS: 36415; 80048; 80061; 83036; 83525; 84439; 84443

== ENCOUNTER 2021-05-13 13:31 | Outpatient (CLI) | payer BC, SELFPAY ==
--- NOTE | ~2021-05-13 | MR_ITS ---
EXAMINATION: MR brain IAC wo/w con DATE: 05/13/2021 15:06 INDICATION: Unspecified hearing loss, right ear. TECHNIQUE: Magnetic resonance imaging (MRI) of the brain, brainstem, and internal auditory canals was performed without and with 20 mL MultiHance intravenous contrast. Sequences included sagittal and ax ial T1-weighted FSE, axial diffusion-weighted FS EPI, axial T2*-weighted GRE, axial T2-weighted FLAIR Propeller, axial T2-weighted Propeller, small hqzcw-la-gdbc coronal FIESTA, small ygmco-cs-odds mary nal T1-weighted FSE, and small pvwge-ne-gblw axial T1-weighted SPGR. Postcontrast sequences included axial T1-weighted FSE, small xyklj-np-owms coronal T1-weighted FSE, and small ctfpy-bj-kcqp axial T1- weighted SPGR. Apparent diffusion coefficient (ADC) maps were created. COMPARISON: None. FINDINGS: There is no intracranial hemorrhage, acute infarction, or abnormal intracranial mass lesion . The ventricles are normal in size. There is mild mucosal thickening in the ethmoid sinuses. The orb its are normal. The internal auditory canals and inner and middle ears are normal. There is a trace l eft mastoid effusion. IMPRESSION: 1. Normal brain. Reviewed, dictated and finalized at location A. PROJECT MANAGER IMPRESSION: 1. Normal brain.
[2021-05-13 14:21] LABS: Estimated Glomerular Filt Rate > 60
== END 2021-05-13 13:32 | disposition home or self-care (01) ==
PROVIDERS: PCP Internal Medicine; Visit Provider Internal Medicine
DX: H91.91 Unspecified hearing loss, right ear (principal)
CPT/HCPCS: 70553; A9577

== ENCOUNTER 2021-06-03 11:47 | Outpatient (CLI) | payer BC, SELFPAY ==
[2021-06-03 12:13] LABS: Basophils Percent Auto 0.4 % (0.2-1.2); Eosinophils Absolute Auto 0.2 K/mm3 (0-0.3); Eosinophils Percent Auto 2.7 % (0-4.4); Hematocrit 41.6 % (42.0-52.0); Hemoglobin 14.3 g/dL (14.0-18.0); Immature Granulocyte Absolute 0.02 K/mm3 (0.00-0.031); Immature Granulocyte Percent A 0.3 % (0-0.5); Lymphocytes Absolute Auto 1.84 K/mm3 (0.9-3.2); Lymphocytes Percent Auto 26.5 % (18.3-44.2); Mean Corpuscular HGB Conc 34.4 g/dl (32-36); Mean Corpuscular Hemoglobin 34.1 pg (26-34); Mean Corpuscular Volume 99.3 fl (80-100); Mean Platelet Volume 8.8 fl (7.4-10.4); Monocytes Absolute Auto 0.7 K/mm3 (0.1-0.6); Monocytes Percent Auto 10.5 % (2.6-8.5); Neutrophils Absolute Auto 4.1 K/mm3 (1.3-6.7); Neutrophils Percent Auto 59.6 % (45.5-73.1); Platelet Count Result 148 k/mm3 (150-375); Red Blood Count 4.19 M/mm3 (4.6-6.20); Red Cell Distribution Width 13.2 % (11.5-14.5)
[2021-06-03 12:21] LABS: Add Urine Microscopic? YES; Appearance Urine Cloudy (Clear); Bilirubin Urine Negative (Negative); Blood Urine Negative (Negative); Color Urine Amber (Yellow); Glucose Urine UA Negative (Negative); Ketones Urine Negative (Negative); Leukocyte Esterase Ur Negative LEU/UL (Negative); Nitrate Urine Negative (Negative); Protein Urine Negative (Negative); RBC Urine 0-2 /hpf (0-2); Specific Grav Ur 1.012 (1.001-1.035); Urobilinogen Urine Negative mg/dL (<2.0); WBC Urine 0-3 /hpf
[2021-06-03 12:28] LABS: Anion Gap 11 mmol/L (8-16); Blood Urea Nitrogen 15 mg/dL (9-20); Calcium 9.8 mg/dL (8.4-10.2); Carbon Dioxide 23 mmol/L (22-30); Chloride 104 mmol/L (98-107); Cholesterol 155 mg/dL (0-200); Estimated Glomerular Filt Rate > 60; Glucose 95 mg/dL (65-110); HDL Direct 53 mg/dL; Potassium 4.5 mmol/L (3.4-5.0); Sodium 138 mmol/L (137-145); Triglycerides 228 mg/dL (<150)
[2021-06-03 12:39] LABS: LDL Cholesterol Direct 62 mg/dL
[2021-06-03 12:58] LABS: Thyroid Stimulating Hormone 0.102 uIU/mL (0.465-4.680)
[2021-06-03 13:01] LABS: Hemoglobin A1C 5.7 % (<5.7)
[2021-06-03 13:10] LABS: Creatinine Urine 101.6 mg/dL
[2021-06-03 13:14] LABS: MALB Creatinine Ratio 14.1 mg/g (0-30); Microalbumin Urine Random 14.3 mg/L (0-16.7)
[2021-06-03 13:25] LABS: Free T4 Free Thyroxine 1.13 ng/mL (0.78-2.19)
== END 2021-06-03 11:48 | disposition home or self-care (01) ==
LOC: ANHLAB 11:49
PROVIDERS: PCP Internal Medicine; Visit Provider Internal Medicine
DX: I10 Essential (primary) hypertension (principal); Z79.899 Other long term (current) drug therapy; E03.9 Hypothyroidism, unspecified; R73.03 Prediabetes; Z12.5 Encounter for screening for malignant neoplasm of prostate; E78.5 Hyperlipidemia, unspecified
CPT/HCPCS: 36415; 80048; 80061; 81001; 82043; 83036; 84153; 84439; 84443; 85025; G0103

== ENCOUNTER 2021-11-14 11:17 | Outpatient (CLI) | payer BC, SELFPAY ==
[2021-11-14 12:19] LABS: Alanine Aminotransferase 36 U/L (6-50); Albumin Level 4.7 g/dL (3.5-5.1); Alkaline Phosphatase 69 U/L (38-126); Anion Gap 9 mmol/L (8-16); Aspartate Amino Transferase 36 U/L (17-59); Bilirubin,Total 0.2 mg/dL (0.2-1.3); Blood Urea Nitrogen 24 mg/dL (9-20); Calcium 9.5 mg/dL (8.4-10.2); Carbon Dioxide 25 mmol/L (22-30); Chloride 106 mmol/L (98-107); Cholesterol 148 mg/dL (0-200); Estimated Glomerular Filt Rate 60; Glucose 106 mg/dL (65-110); HDL Direct 47 mg/dL; Potassium 4.7 mmol/L (3.4-5.0); Sodium 140 mmol/L (137-145); Triglycerides 217 mg/dL (<150)
[2021-11-14 12:30] LABS: LDL Cholesterol Direct 58 mg/dL
[2021-11-14 12:37] LABS: Hemoglobin A1C 5.3 % (<5.7)
[2021-11-14 12:46] LABS: Free T4 Free Thyroxine 1.32 ng/mL (0.78-2.19); Vitamin D 25 Hydroxy 63.6 ng/mL
[2021-11-14 12:48] LABS: Thyroid Stimulating Hormone 0.282 uIU/mL (0.465-4.680)
== END 2021-11-14 11:18 | disposition home or self-care (01) ==
LOC: ANHLAB 11:18
PROVIDERS: PCP Internal Medicine; Visit Provider Internal Medicine
DX: R73.03 Prediabetes (principal); I10 Essential (primary) hypertension; E55.9 Vitamin D deficiency, unspecified; E03.9 Hypothyroidism, unspecified; E78.5 Hyperlipidemia, unspecified
CPT/HCPCS: 36415; 80053; 80061; 82306; 83036; 84439; 84443

== ENCOUNTER 2022-07-19 12:27 | Emergency (ER) | payer OTHER, SELFPAY ==
--- NOTE | ~2022-07-19 | XR_ITS ---
XR chest 2V DATE: 07/19/2022 13:50 INDICATION: Cough for 3 days TECHNIQUE: 2 views COMPARISON: None FINDINGS: Normal heart size. There is mild aortic unfolding. No hilar or mediastinal enlargement. No pulmonary infiltrate or consolidation, pleural effusion or pulmonary vascular congestion or pneumotho rax. IMPRESSION: No active cardiopulmonary disease Reviewed, dictated and finalized at location A. ING MACHINE OPERATOR THERMIT
[2022-07-19 12:40] VITALS: BP 120/59; PULSE 65; RESP 20; TEMP 37.3; O2SAT 96
--- NOTE | 2022-07-19 13:12 | ED.GENADULT ---
HPI - General Adult General Chief complaint: Upper Respiratory Infection Stated complaint: cough Source: patient Mode of arrival: ambulatory Limitations: no limitations History of Present Illness HPI narrative: Patient presents for evaluation of sick symptoms for the last 4 days. Symptoms include productive cough of brown sputum with shortness of breath during coughing episodes. He also has pleuritic chest pain and a sore throat. He denies any fever, chills, nausea, vomiting, diarrhea. 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 He has had COVID twice in the past. He tried taking Mucinex for symptoms. He smokes cigars. No additional complaints or concerns. Related Data Home Medications Medication Instructions Recorded Confirmed omeprazole 40 mg capsule,delayed 40 mg PO QAM 12/21/19 07/19/22 release Allergies Allergy/AdvReac Type Severity Reaction Status Date / Time No Known Allergies Allergy Verified 07/19/22 12:45 Review of Systems Review of Systems: CONSTITUTIONAL: Denies fever, chills, or sweats. EYES: Denies visual changes, redness, or discharge. ENT: Reports sore throat. denies rhinorrhea, congestion, or otalgia. CARDIOVASCULAR: Reports pleuritic chest pain. Denies chest pain otherwise. Denies palpitations, or edema. RESPIRATORY: Reports productive cough of brown sputum with associated SOB during coughing episodes. GASTROINTESTINAL: Denies abdominal pain, nausea, vomiting, or diarrhea. GENITOURINARY: Denies dysuria or hematuria. SKIN: Denies rash or itching. MUSCULOSKELETAL: Denies back pain, joint pain, or myalgia. NEUROLOGIC: Denies headache, numbness, dizziness, or weakness. PSYCHIATRIC: Denies anxiety or depression. 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 History of tonsillectomy Status post LASIK surgery Status post total knee replacement, left Family History Family History Mother Cancer Father Hypertension CHF (congestive heart failure) Cerebrovascular accident Other No active medical problems Social History Social History Social History: Surrogate decision maker: Thomas Acevespatriciabernard, sibling. Code status: Full code. Smoking status: Current every day smoker (cigars) Tobacco type: cigars Additional smoking assessment comments: Four cigars a week for 17 years. Alcohol intake: current Drinks per week: 7 Alcohol use details: One glass of wine an evening. Substance use: never Lack of Transportation: No Lack of Food: Never True Current Housing: I Have Housing Concerned About Future Housing: No Difficulty Paying Gas/Electric Bills: No Difficulty Paying for Meds: No Currently Unemployed: No Education: Master's Degree or Higher Difficulty w/ Childcare or Family Care: No Living arrangements: alone Additional living arrangements comments: Resides in [place]. 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 Gender identity (if verbalized by the patient): Male Spiritual care concerns: No Exam Narrative: Cristian
[2022-07-19] MEDS: IPRATROPIUM BR 0.02% INH SOLN 0.5 MG/2.5 ML VIAL INHALATION (13:22)
[2022-07-19] MEDS: ALBUTEROL SULFATE NEB 2.5 MG/3 ML INH INHALATION (13:22)
[2022-07-19] MEDS: methylPREDNISolone SOD SUCC 125 MG VIAL IM (13:42)
== END 2022-07-19 14:05 | disposition home or self-care (01) ==
PROVIDERS: Emergency Provider Nurse Practitioner; PCP Internal Medicine
DX: J18.9 Pneumonia, unspecified organism (principal); Z20.822 Contact with and (suspected) exposure to COVID-19; F17.290 Nicotine dependence, other tobacco product, uncomplicated; K21.9 Gastro-esophageal reflux disease without esophagitis; I10 Essential (primary) hypertension; E03.9 Hypothyroidism, unspecified; G47.33 Obstructive sleep apnea (adult) (pediatric); M17.12 Unilateral primary osteoarthritis, left knee; G62.9 Polyneuropathy, unspecified; Z96.652 Presence of left artificial knee joint
CPT/HCPCS: 71046; 87081; 87426; 87804; 87880; 94640; 96372; 99213; C9803; G0463; J2930

== ENCOUNTER 2022-07-22 14:22 | Outpatient (CLI) | payer OTHER, SELFPAY ==
--- NOTE | ~2022-07-22 | XR_ITS ---
Clinical Indication: Cough PA and lateral views of the chest: Comparison: 07/19/2022 Findings: Probable nipple shadow at the left lung base. The lungs are otherwise clear, without eviden ce of focal consolidation or pleural effusion. Cardiomediastinal silhouette is within normal limits. Bones and soft tissues are unremarkable. Impression: Probable nipple shadow at the left lung base. Consider follow-up/repeat exam with nipple marker, to b jammie exclude pulmonary nodule. Reviewed, dictated and finalized at location M. D LINER OPERATOR Impression: Probable nipple shadow at the left lung base. Consider follow-up/repeat exam wi th nipple marker, to better exclude pulmonary nodule.
== END 2022-07-22 14:23 | disposition home or self-care (01) ==
LOC: ANHIMG 14:27
PROVIDERS: PCP Internal Medicine; Visit Provider Internal Medicine
DX: R06.2 Wheezing (principal); R05.9 Cough, unspecified
CPT/HCPCS: 71046

== ENCOUNTER 2023-04-14 02:40 | Day surgery (SDC) | payer OTHER, SELFPAY ==
[2023-04-01 09:55] VITALS: BMI 29.7
--- NOTE | 2023-04-12 08:41 | SUR.PREOP ---
Patient called regarding upcoming procedure. message left on patient's voicemail regarding preop instructions, appointment times, and procedure prep.
--- NOTE | 2023-04-13 10:49 | PM.HPGS ---
History of Present Illness History of Present Illness Consent: Risks, benefits, and alternatives have been discussed and questions answered. Patient agrees to proceed with procedure. Chief complaint: hx colon polyps Narrative: Gustavo Hebert is a 72 year old male referred for colon cancer screening. He has a history of polyps. Review of Systems Review of Systems: All systems reviewed & are unremarkable except as noted in HPI and below PMFSH Past Medical History Medical History BMI 30.0-30.9,adult BMI 31.0-31.9,adult BMI 32.0-32.9,adult Cyst Degenerative joint disease of left knee Dyslipidemia Encounter for preventive health examination Encounter for routine adult health examination without abnormal findings Gastroesophageal reflux disease Hearing loss History of migraine headaches Hx of colonic polyps Hypertension Hypothyroidism Insulin resistance Neuropathy of both feet FELIX on CPAP Personal history of COVID-19 Prostate cancer screening Reactive hypoglycemia 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 History of lumbar laminectomy for spinal cord decompression History of tonsillectomy Hx of appendectomy Hx of LASIK Status post LASIK surgery Status post total knee replacement, left Family History Family History Mother Cancer Father Hypertension CHF (congestive heart failure) Cerebrovascular accident Other No active medical problems Social History Social History Social History: Surrogate decision maker: Thomas Finch, sibling. Code status: Full code. Years smoked: 17 Smoking status: Current every day smoker (cigars) Tobacco type: cigars Additional smoking assessment comments: 4 cigars weekly Alcohol intake: current Drinks per week: 7 Alcohol use details: One glass of wine an evening. 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 Gender identity (if verbalized by the patient): Male Spiritual care concerns: No Meds Home Medications and Allergies Home Medications Medication Instructions Recorded Confirmed Type omeprazole 40 mg capsule,delayed 40 mg PO QAM 12/21/19 04/14/23 History release ascorbic acid (vitamin C) 500 mg 500 mg PO DAILY 01/18/23 04/14/23 History capsule multivitamin 1 tablet PO DAILY 01/18/23 04/14/23 History metformin 500 mg tablet See Rx Instructions .Route 02/08/23 04/14/23 Rx .COMPLEX #270 tabs aspirin 81 mg capsule 81 mg PO DAILY 04/01/23 04/14/23 History carbamazepine 400 mg 400 mg PO DAILY 04/14/23 04/14/23 History tablet,extended release,12 hr gabapentin 100 mg capsule 100 mg PO TID 04/14/23 04/14/23 History levothyroxine 175 mcg tablet 175 mcg PO DAILY 04/14/23 04/14/23 History nebivolol 5 mg tablet 5 mg PO DAILY 04/14/23 04/14/23 History olmesartan 40 mg tablet 40 mg PO DAILY 04/14/23 04/14/23 History rosuvastatin 20 mg tablet 20 mg PO DAILY 04/14/23 04/14/23 History Allergies Allergy/AdvReac Type Severity Reaction Status Date / Time No Known Allergies Allergy Verified 04/14/23
[2023-04-14 08:10] LABS: Glucose Point of Care 117 mg/dl (65-105)
[2023-04-14 08:12] VITALS: BP 141/76; PULSE 54; RESP 18; TEMP 36.2; O2SAT 99
[2023-04-14] MEDS: LACTATED RINGERS 1,000 ML 150 ML IV CONT (08:15)
--- NOTE | 2023-04-14 08:38 | WPDANESEPPF ---
Anes - Initial Pre Proc Eval Procedure: Operation Date: 04/14/23 09:30 Proposed Procedures p Colonoscopy - Mitch Velasquez MD Date/Time: 04/14/23 08:38 Surgeon: Mitch Velasquez MD Pre Op Diagnosis: hx colon polyps Patient Data Age: 72 Gender: M Height: 1.78 m Weight: 99.1 kg Last Vital Signs Temp 36.2 C L 04/14/23 08:12 Pulse 54 L 04/14/23 08:12 Resp 18 04/14/23 08:12 BP 141/76 H 04/14/23 08:12 Pulse Ox 99 04/14/23 08:12 O2 Del Method Room Air 04/14/23 08:12 Allergies Allergy/AdvReac Type Severity Reaction Status Date / Time No Known Allergies Allergy Verified 04/14/23 08:10 Home Medications Medication Instructions Recorded Confirmed Type omeprazole 40 mg capsule,delayed 40 mg PO QAM 12/21/19 04/14/23 History release ascorbic acid (vitamin C) 500 mg 500 mg PO DAILY 01/18/23 04/14/23 History capsule multivitamin 1 tablet PO DAILY 01/18/23 04/14/23 History metformin 500 mg tablet See Rx Instructions .Route 02/08/23 04/14/23 Rx .COMPLEX #270 tabs aspirin 81 mg capsule 81 mg PO DAILY 04/01/23 04/14/23 History carbamazepine 400 mg 400 mg PO DAILY 04/14/23 04/14/23 History tablet,extended release,12 hr gabapentin 100 mg capsule 100 mg PO TID 04/14/23 04/14/23 History levothyroxine 175 mcg tablet 175 mcg PO DAILY 04/14/23 04/14/23 History nebivolol 5 mg tablet 5 mg PO DAILY 04/14/23 04/14/23 History olmesartan 40 mg tablet 40 mg PO DAILY 04/14/23 04/14/23 History rosuvastatin 20 mg tablet 20 mg PO DAILY 04/14/23 04/14/23 History Laboratory Tests 04/14/23 08:07 POC Capillary Glucose 117 H mg/dl (65-105) Patient hx anesthesia problems: none Family hx anesthesia problems: none Results Review: All pre-operative results and documents have been reviewed as part of the pre-operative evaluation. 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 History of lumbar laminectomy for spinal cord decompression History of tonsillectomy Hx of appendectomy Hx of LASIK Status post LASIK surgery Status post total knee replacement, left Family History Family History Mother Cancer Father Hypertension CHF (congestive heart failure) Cerebrovascular accident Other No active medical problems Social History Social History Social History: Surrogate decision maker: Thomas Acevespatriciabernard, sibling. Code status: Full code. Years smoked: 17 Smoking status: Current every day smoker (cigars) Tobacco type: cigars Additional smoking assessment comments: 4 cigars weekly Alcohol intake: current Drinks per week: 7 Alcohol use details: One glass of wine an evening. Substance use: never Substance use type: does not use Lack of Transportation: No Lack of Food: Never True Current Housing: I Have Housing Concerned About Future Housing: No Difficulty Paying Gas/Electric Bills: No Difficulty Paying for Meds: No Currently Unemployed: No Education: Master's Degree or High
[2023-04-14] MEDS: SIMETHICONE ORAL SUSPENSION 20 MG/0.3 ML 30 ML BOTTLE 0.6 ML IRRIGATION (09:29)
--- NOTE | 2023-04-14 09:39 | SUR.OPER ---
ASCENDING COLON POLYPS X2 REMOVED WITH COLD BIOPSY FORCEPS, ONLY ONE POLYP RETRIEVED, DR OSPINA AWARE, NO NEW ORDERS.
[2023-04-14 09:40] VITALS: BP 109/61; PULSE 50; RESP 15; O2SAT 98
[2023-04-14 09:50] VITALS: BP 119/63; PULSE 47; RESP 14; O2SAT 97
[2023-04-14 10:00] VITALS: BP 126/68; PULSE 50; RESP 18; O2SAT 99
== END 2023-04-14 10:10 | disposition home or self-care (01) ==
PROVIDERS: PCP Internal Medicine; Visit Provider Internal Medicine Gastroenterology
PROC: 0DJD8ZZ Inspection of Lower Intestinal Tract, Via Natural or Artificial Opening Endoscopic (ICD-10-PCS; CPT 45378; principal; 2023-04-14 09:30)
DX: Z12.11 Encounter for screening for malignant neoplasm of colon (principal); D12.2 Benign neoplasm of ascending colon; K64.8 Other hemorrhoids; K57.30 Diverticulosis of large intestine without perforation or abscess without bleeding; E78.5 Hyperlipidemia, unspecified; I10 Essential (primary) hypertension; E03.9 Hypothyroidism, unspecified; K21.9 Gastro-esophageal reflux disease without esophagitis; G62.9 Polyneuropathy, unspecified; F17.210 Nicotine dependence, cigarettes, uncomplicated; F10.90 Alcohol use, unspecified, uncomplicated; Z86.010 Personal history of colon polyps; Z79.84 Long term (current) use of oral hypoglycemic drugs; Z79.82 Long term (current) use of aspirin; Z80.9 Family history of malignant neoplasm, unspecified
CPT/HCPCS: 45380; 82948; 88305; J2704; J7120

== ENCOUNTER → 2023-06-11 10:50 | Outpatient (CLI) | payer OTHER, SELFPAY ==
--- NOTE | ~2023-06-11 | CT_ITS ---
EXAMINATION: CT sinus wo con DATE: 06/11/2023 11:01 INDICATION: Chronic sinusitis. Bilateral ear pain, greater on the left TECHNIQUE: Computed tomography (CT) of the paranasal sinuses was performed without contrast. Iterativ e reconstruction technique was employed. Exam dose: 394.17 mGy-cm total exam DLP. COMPARISON: None FINDINGS: There is mild rightward bowing of the superior nasal septum. Mild soft tissue swelling of the nasal turbinates. There is ronaldo bullosa of the left middle nasal t urbinate. There is mucoperiosteal thickening in the inferolateral left frontal sinus, extending into the fronto ethmoid recess. There is patchy soft tissue opacification of the ethmoid air cells bilaterally. There is prominent mucoperiosteal thickening of the left maxillary sinus. The remaining paranasal sinuses are unremarkable. There is soft tissue thickening largely occluding the left maxillary ostium and infundibulum and left ethmoid bulla. There is mild soft tissue thickening at the right maxillary ostium and infundibulum and to a greater extent right ethmoid bulla. The mastoid air cells are well-developed and aerated bilaterally. Middle and inner ear apparatus appe ar normal bilaterally. IMPRESSION: Moderate bowing of superior nasal septum Ronaldo bullosa of left middle nasal turbinate Partial opacification of the ostiomeatal units bilaterally, more severe on the left Inferomedial left frontal sinus and left frontoethmoid recess soft tissue opacification Prominent mucoperiosteal thickening of left maxillary sinus and patchy opacification of bilateral eth moid air cells Reviewed, dictated and finalized at Location A. Reviewed, dictated and finalized at location B. L CABINET FINISHER IMPRESSION: Moderate bowing of superior nasal septum Ronaldo bullosa of left middle nasal turbinate Partial opacification of the ostiomeatal units bilaterally, more severe on the left Inferomedial left frontal sinus and left frontoethmoid recess soft tissue opaci fication Prominent mucoperiosteal thickening of left maxillary sinus and patchy opacific ation of bilateral ethmoid air cells
== END ==
PROVIDERS: PCP Internal Medicine; Visit Provider Internal Medicine
DX: J32.9 Chronic sinusitis, unspecified (principal); J34.89 Other specified disorders of nose and nasal sinuses; R93.0 Abnormal findings on diagnostic imaging of skull and head, not elsewhere classified
CPT/HCPCS: 70486

== ENCOUNTER 2023-10-28 13:34 | Outpatient (CLI) | payer OTHER, SELFPAY ==
--- NOTE | 2023-10-28 14:35 | ECG_ITS ---
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 Measurements Intervals [place] Rate: 63 P: 18 ID: [id number] QRS: -48 QRSD: 119 T: 54 QT: 403 QTc: 414 Interpretive Statements SINUS RHYTHM INCOMPLETE RIGHT BUNDLE BRANCH BLOCK [90+ ms QRS DURATION, TERMINAL R IN V1/V2, 40+ ms S IN I/aVL/V4/V5/V6] LEFT ANTERIOR FASCICULAR BLOCK [QRS AXIS <= -45, QR IN I, RS IN II] ABNORMAL ECG No previous ECG available for comparison Electronically Signed On 10-29-2023 08:53:41 CDT by Mario Truong M.D.
[2023-11-01 19:03] LABS: Carbamazepine Tegretol 8.6 mcg/mL (4.0-12.0)
== END 2023-10-28 13:35 | disposition home or self-care (01) ==
PROVIDERS: Anesthesiology; PCP Internal Medicine; Visit Provider Otolaryngology
DX: Z01.818 Encounter for other preprocedural examination (principal); I10 Essential (primary) hypertension; Z29.89 Encounter for other specified prophylactic measures; I45.2 Bifascicular block
CPT/HCPCS: 36415; 80156; 93005

== ENCOUNTER 2023-11-02 02:33 | Day surgery (SDC) | payer OTHER, SELFPAY ==
[2023-10-27 15:07] VITALS: BMI 32.2
--- NOTE | 2023-10-27 15:42 | PC.NURSE ---
Report to the Outpatient Waiting Room, entrance under the green pavilion located off [facility], at time ___9:45AM____ on date __11/02/23 . Planned Procedure Time: __11:45AM . Time changes happen often and if your time is changed the preop area will call you the afternoon before. - You and your visitor will be asked to self-screen and do not enter if you have any COVID symptoms. - A mask is optional within the hospital at this time. Patients may have clear liquids (water, carbonated beverages, clear teas, apple juice) until 3 hours prior to surgery with a maximum of 20 ounces. - No food from midnight until time of surgery. Take the following medications with a SIP of water the morning of surgery: __CARBAMAZEPINE, GABAPENTIN DO NOT STOP ANY OF YOUR OTHER PRESCRIPTION MEDICATIONS PRIOR TO SURGERY ?EXCEPT THE FOLLOWING Medications to discontinue per physician ___HOLD ASPIRIN 7 DAYS PRE-OP PER DR DAVIS- LAST DOSE 10/27/23- (OFFICE NOTIFIED THAT PATIENT WILL HAVE BEEN OFF FOR ONLY 5 DAYS). HOLD ALL VITAMINS/SUPPLEMENTS 3 DAYS PRE-OP PER ANESTHESIA- LAST DOSE 10/29/23 Please no make-up, nail vietnamese, hairspray, perfume, deodorant, or body powder the day of surgery. No jewelry (including any body piercings) or valuables the day of surgery, leave them at home. Please take a shower or bath the night before, or the morning of, surgery with an antibacterial soap. Wear comfortable, loose fitting clothing. - Jewelry must be removed prior to entering the operating room. Rings and piercings that are not removed may be cut off. - The hospital will not accept responsibility for valuables. - Please leave all valuables, including medications, at home the day of surgery. If you are going home after surgery, a licensed bookmobile driver must drive you home. - NO public transportation without another adult if you receive anesthesia. - We recommend that an adult stay with you for 24 hours following discharge. - We also recommend that you do not drive, make important decision, drink alcoholic beverages, or take any drugs that were not prescribed by your health care provider for at least 24 hours after your discharge time. Follow any additional instructions given to you from your surgeon. If you or anyone in your household have experienced Covid symptoms in the past week, please notify your surgeon or the nurse liaison at the phone number below for possible testing. Telephone instructions given to ____PATIENT and asked if any additional questions and then verbalized understanding. Patient advised to call surgeon office or pre surgery nurse liaison [phone] if any additional questions.
--- NOTE | 2023-11-01 14:21 | PM.IMHP ---
H&P: HPI History of Present Illness Date/Time: 11/01/23 14:21 Chief Complaint: septal deviation turbinate hypertrophy chronic sinusitis ronaldo bullosa Narrative: planned procedure Review of Systems Review of Systems: All systems reviewed & are unremarkable except as noted in HPI and below PMFSH Past Medical History Medical History (Updated 10/21/23 @ 11:30 by Alison Schaefer CMA) BMI 30.0-30.9,adult BMI 31.0-31.9,adult BMI 32.0-32.9,adult Chronic sinusitis Cyst Degenerative joint disease of left knee Dyslipidemia Encounter for Medicare annual wellness exam Encounter for preventive health examination Encounter for routine adult health examination without abnormal findings Gastroesophageal reflux disease Hearing loss History of migraine headaches Hx of colonic polyps Hypertension Hypothyroidism Insulin resistance Neuropathy of both feet FELIX on CPAP Personal history of COVID-19 Prostate cancer screening Reactive hypoglycemia 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 History of lumbar laminectomy for spinal cord decompression History of tonsillectomy Hx of appendectomy Hx of LASIK Status post LASIK surgery Status post total knee replacement, left Family History Family History Mother Cancer Father Hypertension CHF (congestive heart failure) Cerebrovascular accident Alcoholism Cancer Other No active medical problems Social History Social History Social History: Surrogate decision maker: Thomas Finch, sibling. Code status: Full code. Years smoked: 17 Smoking status: Current some day smoker Tobacco type: cigars Additional smoking assessment comments: SMOKES 3 CIGARS/WEEK X 20 YEARS Alcohol intake: current Drinks per week: 4 Alcohol use details: One glass of wine an evening. 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 Gender identity (if verbalized by the patient): Male Spiritual care concerns: No Meds Home Medications and Allergies Home Medications Medication Instructions Recorded Confirmed Type omeprazole 40 mg capsule,delayed 40 mg PO QAM 12/21/19 10/27/23 History release ascorbic acid (vitamin C) 500 mg 500 mg PO DAILY 01/18/23 10/27/23 History capsule multivitamin 1 tablet PO DAILY 01/18/23 10/27/23 History aspirin 81 mg capsule 81 mg PO DAILY 04/01/23 10/27/23 History rosuvastatin 20 mg tablet See Rx Instructions .Route 05/03/23 10/27/23 Rx .COMPLEX #90 tabs metformin 500 mg tablet See Rx Instructions .Route 05/06/23 10/27/23 Rx .COMPLEX #270 tabs CPap Machine #1 ea 05/31/23 10/21/23 Rx carbamazepine 400 mg See Rx Instructions .Route 08/16/23 10/27/23 Rx tablet,extended release,12 hr .COMPLEX #90 tabs levothyroxine 175 mcg tablet See Rx Instructions .Route 08/23/23 10/27/23 Rx .COMPLEX #90 tabs fluticasone propionate 50 See Rx Instructions .Route 09/14/23 10/27/23 Rx mcg/actuation nasal .COMPLEX #16 grams spray,suspension olmesartan 40 mg tablet See Rx Instructions .Route 09/14/23 10/27/23 Rx .COMPLEX #90
[2023-11-02] VITALS (9 sets, daily range): BP systolic 160–181; BP diastolic 79–96; PULSE 54–78; RESP 14–18; TEMP 36–36.2; O2SAT 95–100
--- NOTE | 2023-11-02 07:20 | WPDHPUPDATE1 ---
History and Physical Update Update Date/Time: 11/02/23 07:20 History and Physical has been reviewed, including an updated exam of the patient. There are NO changes in the patient's condition. Risks, benefits, and alternatives have been discussed and questions answered. Patient agrees to proceed with procedure.
[2023-11-02] MEDS: LACTATED RINGERS 1,000 ML 30 ML IV CONT ×2 (10:15→15:17)
[2023-11-02] MEDS: ACETAMINOPHEN 500 MG TABLET 1000 MG PO (10:16)
[2023-11-02 10:20] LABS: Glucose Point of Care 133 mg/dl (65-105)
--- NOTE | 2023-11-02 11:22 | WPDANESEPPF ---
Anes - Initial Pre Proc Eval Procedure: Operation Date: 11/02/23 11:45 Proposed Procedures p Image Guided Endoscopic Bilateral Maxillary Antrostomy, Bilateral Total Ethmoidectomy, Bilateral Frontal Sinusotomy, Left Simi Bullosa Resection, Bilateral Inferior Turbinate Reduction with Outfracture - Lee Gaona MD s Endoscopic Assisted Septoplasty - Lee Gaona MD Date/Time: 11/02/23 11:22 Surgeon: Lee Gaona MD Pre Op Diagnosis: Chr Sinusitis, Septal Dev, Simi Bullosa Patient Data Age: 72 Gender: M Height: 1.78 m Weight: 102.2 kg Last Vital Signs Temp 96.8 F L 11/02/23 09:51 Pulse 54 L 11/02/23 09:51 Resp 16 11/02/23 09:51 BP 163/79 H 11/02/23 09:51 Pulse Ox 99 11/02/23 09:51 O2 Del Method Room Air 11/02/23 09:51 Allergies Allergy/AdvReac Type Severity Reaction Status Date / Time No Known Allergies Allergy Verified 11/02/23 09:54 Home Medications Medication Instructions Recorded Confirmed Type omeprazole 40 mg capsule,delayed 40 mg PO QAM 12/21/19 10/27/23 History release ascorbic acid (vitamin C) 500 mg 500 mg PO DAILY 01/18/23 10/27/23 History capsule multivitamin 1 tablet PO DAILY 01/18/23 10/27/23 History aspirin 81 mg capsule 81 mg PO DAILY 04/01/23 10/27/23 History rosuvastatin 20 mg tablet See Rx Instructions .Route 05/03/23 10/27/23 Rx .COMPLEX #90 tabs metformin 500 mg tablet See Rx Instructions .Route 05/06/23 10/27/23 Rx .COMPLEX #270 tabs CPap Machine #1 ea 05/31/23 10/21/23 Rx carbamazepine 400 mg See Rx Instructions .Route 08/16/23 10/27/23 Rx tablet,extended release,12 hr .COMPLEX #90 tabs levothyroxine 175 mcg tablet See Rx Instructions .Route 08/23/23 10/27/23 Rx .COMPLEX #90 tabs fluticasone propionate 50 See Rx Instructions .Route 09/14/23 10/27/23 Rx mcg/actuation nasal .COMPLEX #16 grams spray,suspension olmesartan 40 mg tablet See Rx Instructions .Route 09/14/23 10/27/23 Rx .COMPLEX #90 tabs gabapentin 100 mg capsule See Rx Instructions .Route 09/21/23 10/27/23 Rx .COMPLEX #90 caps lactobacillus combination no.8 3 3 cell PO DAILY 10/27/23 10/27/23 History billion cell capsule nebivolol 5 mg tablet 5 mg PO QPM 10/27/23 10/27/23 History prednisone 10 mg tablet 10 mg PO .qam 4 days #4 tabs 10/29/23 10/29/23 Rx Laboratory Tests 11/02/23 10:16 POC Capillary Glucose 133 H mg/dl (65-105) Patient hx anesthesia problems: none Family hx anesthesia problems: none Results Review: All pre-operative results and documents have been reviewed as part of the pre-operative evaluation. [facility] Past Medical History Medical History BMI 30.0-30.9,adult BMI 31.0-31.9,adult BMI 32.0-32.9,adult Chronic sinusitis Cyst Degenerative joint disease of left knee Dyslipidemia Encounter for Medicare annual wellness exam Encounter for preventive health examination Encounter for routine adult health examination without abnormal findings Gastroesophageal reflux disease Hearing loss History of migraine headaches Hx of colonic polyps Hypertension Hypothyroidism Insulin resistance Neuropathy of both feet FELIX on CPAP Personal history of COVID-19 Prostate cancer screening Reactive hypoglycemia 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 History of lumbar laminectomy for spinal cord decompression History of tonsillectomy Hx of appendectomy Hx of LASIK Status post LASIK surgery Status post total knee replacement, left Family History Family History Mother Cancer Father Hypertension CHF (co
[2023-11-02] MEDS: ceFAZolin 2 GM/D5W 50 ML 2 GM/50 ML BAG IVPB (11:33)
[2023-11-02] MEDS: OXYMETAZOLINE HCL 0.05% NAS 15 ML BTL (*BKC) 1 SPRAY NASAL (12:11)
[2023-11-02] MEDS: LIDO 1%/EPINEPHRINE 1:100,000 50 ML VIAL INFILTRATE (12:13)
[2023-11-02 15:28] LABS: Glucose Point of Care 147 mg/dl (65-105)
--- NOTE | 2023-11-02 15:35 | W.PM.PROC2 ---
Procedure Note - Detailed Date of Procedure 11/02/23 Pre-op Diagnosis Chr Sinusitis, Septal Dev, Simi Bullosa,Nasal polyps, nasal obstruction, turbinate hypertrophy, nasal congestion Post-op Diagnosis Same Procedure Performed bilateral image guided endoscopic maxillary antrostomies total ethmoidectomies frontal sinusotomies with propel stent placement, use of image guidance, bilateral inferior turbinate reduction with outfracture, endoscopic assisted septoplasty, bilateral middle turbinectomies. Surgeon Lee Gaona MD Anesthesia General Indications See above Findings severely diseased sinonasal mucosa in all the sinuses except the maxillary sinuses really left mild disease sorry left moderate right mild all the ethmoids all frontals full of polyps and polypoid disease or polyps on the medial aspects of both middle turbinates necessitating the removal they were obstructive. Septum was severely osteotomy can disease. Small tear on the left part of the septum turbinates well reduced Description of Procedure patient identified consent verified preop. Patient brought to the operating room. Time-out performed. General anesthesia induced endotracheal tube secured airway. Patient prepped draped position procedure confirmed 2nd time-out performed. Image guidance initiated confirmed. Afrin-soaked pledgets placed for 5 minutes then removed. Nasal passages examined polyps on the middle turbinates middle turbinates removed after injection with local a total of 20 cc of lidocaine 1 100,000 parts epinephrine injected in bilateral nasal septum inferior turbinates and will turbinates middle turbinates removed with straight through cut stumps cauterized with Bovie suction cautery at a setting of 2 w 15. The nasal septum was injected left-sided [place] incision made left nasal septal flap elevated small tear anteriorly inferiorly right nasal septal flap elevated no tear deviated septum removed with osteotome [place]uelo forceps Reg Singh forceps. Wolfgang incision closed with interrupted 5 0 fast gut sutures. Inferior turbinates reduced submucosal plane after stab incision with 15 blade with the [employer] 2 mm microdebrider no tears good reduction outfractured [place] elevator. Maxillary antrostomies performed with a ball-tip probe image guidance straight through cut backbiter nasolacrimal ducts left intact. Total ethmoidectomies performed with [place] image guidance and microdebrider. Of note the left orbit was slightly dehiscent it appeared like the bone was just the and the bone was still intact orbit is intact uvula is pushed on and would move. Severe polypoid and polyps in this area. Frontal sinusotomies performed with image guidance Mark frontal sinus seeker frontal sinus suction. Bleeding about 100 cc throughout the procedure. Wounds copiously irrigated sterile normal saline no purulence which is nice. Propel stents placed Riley splints placed sutured into used to relieve 3-0 mattress nylon suture. Patient tolerated the procedure well no complications OR note there was a tear in the right posterior septum as well no where near the left ear. Patient tolerated the procedure well no complications I performed all dictated portions of procedure blood loss 100 cc care the patient given Anesthesiology 0 0 of note Nova pack was also placed in bilateral middle meati eye. Patient taken to PACU. Estimated Blood Loss 100 Drains No Packing Yes (nata) Pathology None sent Complications No immediate complications Condition Stable Disposition PACU [facility] Billing Surgery - Charge Forward: Surgery Billing
[2023-11-02] MEDS: LABETALOL HCL INJ 100 MG/20 ML VIAL 10 MG IV PUSH (15:47)
[2023-11-02] MEDS: oxyCODONE HCL (*CRX) 5 MG TAB IR PO (16:50)
== END 2023-11-02 18:05 | disposition home or self-care (01) ==
PROVIDERS: PCP Internal Medicine; Visit Provider Otolaryngology
PROC: (CPT 31256; principal; 2023-11-02 11:45)
PROC: (CPT 30520; 2023-11-02 11:45)
DX: J32.9 Chronic sinusitis, unspecified (principal); J34.3 Hypertrophy of nasal turbinates; J34.2 Deviated nasal septum; J34.89 Other specified disorders of nose and nasal sinuses; J33.8 Other polyp of sinus; J33.9 Nasal polyp, unspecified; I10 Essential (primary) hypertension; E78.5 Hyperlipidemia, unspecified; E03.9 Hypothyroidism, unspecified; E55.9 Vitamin D deficiency, unspecified; K21.9 Gastro-esophageal reflux disease without esophagitis; G47.33 Obstructive sleep apnea (adult) (pediatric); G62.9 Polyneuropathy, unspecified; G40.909 Epilepsy, unspecified, not intractable, without status epilepticus; F17.290 Nicotine dependence, other tobacco product, uncomplicated; E66.9 Obesity, unspecified; Z68.32 Body mass index [BMI] 32.0-32.9, adult; Z79.82 Long term (current) use of aspirin; Z79.84 Long term (current) use of oral hypoglycemic drugs
CPT/HCPCS: 31256; 31253; 61782; 30520; 30140; 36415; 80156; 82948; 93005; A9270; J0690; J1100; J2405; J2704; J3010; J7050; J7120

== ENCOUNTER → 2024-01-19 15:36 | Outpatient (CLI) | payer BC, SELFPAY ==
--- NOTE | ~2024-01-19 | XR_ITS ---
EXAMINATION: XR lumbar spine min 4V DATE: 01/19/2024 15:59 INDICATION: Right-sided low back pain. TECHNIQUE: 3 views of lumbar spine were obtained. COMPARISON: None. FINDINGS: There is 5 degrees dextrocurvature of lumbar spine. There is 3 mm retrolisthesis of L2 on L3, L3 on L4, and L4 on L5. Vertebral body heights are normal. There is mildly decreased disc height at L2-L3, moderately decreased disc height at L3-L4, mildly decreased disc height at L4-L5, and shelbie rely decreased disc height at L5-S1. There is multilevel severe facet joint osteoarthritis. IMPRESSION: 1. Severe lumbar spondylosis. Reviewed, dictated and finalized at location A.
--- NOTE | ~2024-01-19 | XR_ITS ---
EXAMINATION: XR hip RT 2V w AP pelvis DATE: 01/19/2024 16:00 INDICATION: Right hip pain. TECHNIQUE: An anteroposterior view of the pelvis and 3 views of right hip were obtained. COMPARISON: None. FINDINGS: Alignment is normal. No fracture. There is mild osteoarthritis of the hips. There is severe lumbar spondylosis. IMPRESSION: 1. Mild osteoarthritis of the hips. Reviewed, dictated and finalized at location A.
== END ==
LOC: EXPBRAD 15:38
PROVIDERS: PCP Internal Medicine; Visit Provider Internal Medicine
DX: M43.06 Spondylolysis, lumbar region (principal); M16.0 Bilateral primary osteoarthritis of hip
CPT/HCPCS: 72110; 73502

== ENCOUNTER 2024-10-12 09:26 | Outpatient (CLI) | payer BC, SELFPAY ==
--- NOTE | ~2024-10-12 | MR_ITS ---
MRI of the lumbar spine Clinical History: Left sciatica Technique: Axial T2-weighted images, and sagittal T1-weighted, T2-weighted, and T2 fat-sat images wer e acquired. Findings: No fracture seen. There is 3 mm retrolisthesis of L2 over L3, L3 over L4, L4-L5, and L5 ove r S1. No fracture seen. No suspicious bone marrow signal abnormality seen. At L1-L2, there is no disc bulge or herniation. There is moderate facet arthropathy. No central canal stenosis or neural foraminal narrowing. At L2-L3, there is disc bulge with severe facet arthropathy. There is moderate spinal canal stenosis/ thecal sac compression. There is moderate to advanced bilateral neural foraminal narrowing. At L3-L4, there is disc bulge and severe facet arthropathy, resulting in severe spinal canal stenosis /thecal sac compression. There is severe bilateral neural foraminal comprise. At L4-L5, disc bulge and severe facet arthropathy result in severe spinal canal stenosis/thecal sac c ompression. There is severe bilateral neural foraminal compromise, right worse than left. At L5-S1, there is severe degenerative disc narrowing. There is disc bulge and severe facet arthropat hy. There is no central canal stenosis. There is severe bilateral neural foraminal compromise. Paravertebral soft tissues are unremarkable. Impression: Severe degenerative spondylosis, especially at L2-L3, L3-L4, L4-L5, L5-S1. There is multilevel severe spinal canal stenosis and multilevel neural foraminal narrowing. Multiple grade 1 retrolistheses in the lumbar spine, as detailed above. Reviewed, dictated and finalized at [facility]. Impression: Severe degenerative spondylosis, especially at L2-L3, L3-L4, L4-L5, L5-S1. Ther e is multilevel severe spinal canal stenosis and multilevel neural foraminal na rrowing. Multiple grade 1 retrolistheses in the lumbar spine, as detailed above.
== END 2024-10-12 09:27 | disposition home or self-care (01) ==
LOC: GOSHIMG 09:26
PROVIDERS: PCP Internal Medicine; Visit Provider Internal Medicine
DX: M54.32 Sciatica, left side (principal); M47.896 Other spondylosis, lumbar region; M47.897 Other spondylosis, lumbosacral region; M43.16 Spondylolisthesis, lumbar region
CPT/HCPCS: 72148

== ENCOUNTER 2024-10-17 09:59 | Outpatient (CLI) | payer BC, SELFPAY ==
--- NOTE | ~2024-10-17 | MR_ITS ---
EXAMINATION: MRI SACRUM W/O CONTRAST DATE: 10/17/2024 10:36 INDICATION: Lumbago with left-sided sciatica TECHNIQUE: Magnetic resonance imaging (MRI) of the bilateral sacroiliac joints was performed without intravenous contrast. Sequences included sagittal PD-weighted FSE; oblique axial T1-weighted FSE and T2-weighted FS FSE; oblique coronal T2-weighted FSE, T1-weighted FSE and T2-weighted FS FSE. COMPARISON: Radiographs dated 01/19/2024 FINDINGS: Severe lower lumbar spondylosis. See separate lumbar spine MRI report for further detail and level by level analysis. Normal bone marrow signal throughout with no fracture, osteonecrosis or pathologic m arrow replacing process. Mild bilateral sacroiliac osteoarthritis. No increased fluid signal along th e joint line to suggest joint effusion or synovitis. No erosions, subarticular sclerosis or edema-lik e signal change to suggest an inflammatory sacroiliitis. Visualized portions of the bilateral hip maurice nts are unremarkable. Postoperative change of prior partial L4 laminectomy with multiple foci of susc eptibility artifact in the surrounding soft tissues. There is increased fluid signal in the posterior paraspinal musculature caudal to the level of the surgery which may reflect secondary denervation ch baylee. Prostatomegaly. Bladder and visualized portions of the bowels are unremarkable. No free fluid i n the pelvis. No pathologically enlarged pelvic lymphadenopathy. IMPRESSION: 1. Mild bilateral sacroiliac osteoarthritis with no findings to suggest inflammatory sacroiliitis or other acute osseous abnormality. 2. Severe lower lumbar spondylosis with change of partial L4 laminectomy. 3. Prostatomegaly. Reviewed, dictated and finalized at location A. IMPRESSION: 1. Mild bilateral sacroiliac osteoarthritis with no findings to suggest inflamm atory sacroiliitis or other acute osseous abnormality. 2. Severe lower lumbar spondylosis with change of partial L4 laminectomy. 3. Prostatomegaly.
== END 2024-10-17 10:00 | disposition home or self-care (01) ==
LOC: GOSHIMG 09:59
PROVIDERS: PCP Internal Medicine; Visit Provider Internal Medicine
DX: M54.42 Lumbago with sciatica, left side (principal); M47.896 Other spondylosis, lumbar region; N40.0 Benign prostatic hyperplasia without lower urinary tract symptoms
CPT/HCPCS: 72195